=== PATIENT | male | born 1965 | race Caucasian/White ===

== ENCOUNTER 2019-02-12 09:45 | Day surgery (SDC) | payer OTHER ==
[~2019-02-12] VITALS: Ht 180.3 cm; Wt 77.0 kg
[2019-02-12] VITALS (10 sets, daily range): BP systolic 99–128; BP diastolic 63–86; PULSE 55–65; TEMP 97.6–98.1
[2019-02-12 10:21] LABS: HEMATOCRIT 42.5 % (42.0-52.0); HEMOGLOBIN 14.7 g/dl (13.5-18.0); MEAN CELL VOLUME 95 fl (80.0-100.0); MEAN CORPUSCULAR HEMOGLOBIN 33 pg (27.0-31.0); MEAN CORPUSCULAR HGB CONC 35 g/dl (33.0-37.0); MEAN PLATELET VOLUME 8.9 fl (7.4-10.4); PLATELET COUNT 212 K/mm3 (130-400); RED BLOOD COUNT 4.47 M/mm3 (4.20-5.60); REDCELL DISTRIBUTION WIDTH-CV 11.9 % (11.5-14.5)
[2019-02-12] MEDS ORDERED: WELLBUTRIN SR150 M1 PO (10:24)
[2019-02-12] MEDS ORDERED: PROZAC60 MG PO (10:25)
[2019-02-12] MEDS ORDERED: ASPIRIN E.C. 8181 MG PO (10:25)
[2019-02-12 10:26] LABS: PROTHROMBIN TIME 11.8 SECONDS (9.7-12.8)
[2019-02-12] MEDS ORDERED: ZYRTEC 10MG10 MG PO (10:26)
[2019-02-12] MEDS ORDERED: BONIVA150 MG PO (10:26)
[2019-02-12] MEDS ORDERED: VALTREX1 GM PO (10:27)
[2019-02-12 10:31] LABS: CALCIUM 9.5 mg/dL (8.4-10.2); CREATININE, serum 1.38 (0.66-1.25); POTASSIUM 4.4 mmol/L (3.4-5.0)
[2019-02-12] MEDS ORDERED: SINGULAIR 110 MG/TAB PO (11:47)
[2019-02-12] MEDS ORDERED: PROVENTIL0.09 MG/A1 IH (11:49)
== END 2019-02-12 15:55 | disposition home or self-care (01) ==
LOC: COL.CAR 09:45
PROVIDERS: Internal Medicine Cardiovascular Disease
DX: R94.39 Abnormal result of other cardiovascular function study (principal); K21.9 Gastro-esophageal reflux disease without esophagitis; M81.0 Age-related osteoporosis without current pathological fracture; I34.0 Nonrheumatic mitral (valve) insufficiency; F17.290 Nicotine dependence, other tobacco product, uncomplicated; Z82.49 Family history of ischemic heart disease and other diseases of the circulatory system
CPT/HCPCS: C1769; J1644; J2250; J3010; Q9967